=== PATIENT | male | born 1970 | race American Indian/Alaskan Native ===

== ENCOUNTER 2018-01-24 07:27 | Inpatient (IN) | payer OTHER ==
[2018-01-24 07:58] LABS: Hematocrit 40.6 % (35.5-45.6); Hemoglobin 13.5 gm/dl (11.8-15.2); Mean Corpuscular HGB Conc 33 % (32-34); Mean Corpuscular Hemoglobin 29 pg (28-32); Mean Corpuscular Volume 88 fl (84-94); Platelet Count 353 K/mm3 (140-440); Red Blood Count 4.64 M/mm3 (3.65-5.03); Red Cell Distribution Width 16.3 % (13.2-15.2)
[2018-01-24] MEDS ORDERED: NORMODYNE IV ONE (08:07)
[2018-01-24 08:13] LABS: INR 0.96 (0.87-1.13)
[2018-01-24 08:20] LABS: Alanine Aminotransferase 35 units/L (7-56); Albumin 3.4 g/dL (3.9-5); BUN/Creatinine Ratio 9; Blood Urea Nitrogen 10 mg/dL (9-20); Calcium 9.1 mg/dL (8.4-10.2); Hemolysis Index 57
[2018-01-24 08:27] LABS: Partial Thromboplastin Time 28.2 Sec. (24.2-36.6)
--- NOTE | 2018-01-24 08:39 | Emergency Department Report ---
ED General Adult HPI - General Chief complaint: Extremity Injury, Lower Stated complaint: RIGHT LEG SWOLLEN Time Seen by Provider: 01/24/18 08:03 Source: patient Mode of arrival: Ambulatory Limitations: No Limitations - History of Present Illness Initial comments: This is a 47-year-old man who admits after some questioning that he has had some chronic leg edema on the right for some time. He states it usually gets better when the elevates his leg. He has never had it checked out via Doppler testing. He states the last several days his right leg has been swollen and has not gone down. He describes some focal swelling of his thigh but mostly has swelling is below the knee. He denies chest pain. He denies any acute respiratory difficulty. He admits to noncompliance with his blood pressure medicine. 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 -: Gradual Location: right, lower extremity Severity scale (0 -10): 4 Quality: aching Consistency: intermittent, now resolved Improves with: none Worsens with: none Associated Symptoms: denies other symptoms - Related Data Previous Rx's Medication Instructions Recorded Last Taken Type Olmesartan/Hydrochlorothiazide 1 tab PO QDAY #90 tablet 08/16/15 Unknown Rx [Benicar HCT 20-12.5 mg] Allergies Allergy/AdvReac Type Severity Reaction Status Date / Time No Known Allergies Allergy Verified 01/24/18 07:35 ED Review of Systems ROS: Stated complaint: RIGHT LEG SWOLLEN Other details as noted in HPI Constitutional: denies: chills, fever Eyes: denies: eye pain, eye discharge, vision change ENT: denies: ear pain, throat pain Respiratory: denies: cough, shortness of breath, wheezing Cardiovascular: denies: chest pain, palpitations Endocrine: no symptoms reported Gastrointestinal: denies: abdominal pain, nausea, diarrhea Genitourinary: denies: urgency, dysuria Musculoskeletal: as per HPI, other. denies: back pain, joint swelling, arthralgia Skin: denies: rash, lesions Neurological: denies: headache, weakness, paresthesias Psychiatric: denies: anxiety, depression Hematological/Lymphatic: denies: easy bleeding, easy bruising ED Past Medical Hx - Past Medical History Hx Hypertension: Yes - Social History Smoking Status: Never Smoker Substance Use Type: None - Medications Home Medications: Home Medications Medication Instructions Recorded Confirmed Last Taken Type Olmesartan/Hydrochlorothiazide 1 tab PO QDAY #90 tablet 08/16/15 Unknown Rx [Benicar HCT 20-12.5 mg] ED Physical Exam - General Limitations: No Limitations General appearance: alert, in no apparent distress - Head Head exam: Present: atraumatic, normocephalic - Eye Eye exam: Present: normal appearance. Absent: scleral icterus - ENT ENT exam: Present: mucous membranes moist - Neck Neck exam: Present: normal inspection. Absent: tenderness, meningismus - Respiratory Respiratory exam: Present: normal lung sounds bilaterally. Absent: respiratory distress - Cardiovascular Cardiovascular Exam: Present: regular rate, normal rhythm. Absent: systolic murmur, diastolic murmur, rubs, gallop - GI/Abdominal GI/Abdominal exam: Present: soft, normal bowel sounds. Absent: distended, tenderness, guarding, rebound, rigid - Rectal Rectal exam: Present: deferred - Extremities Exam Extremities exam: Present: other (very swollen lymphedema and general edema below the knee. There is a patch of edema of the lateral right distal thigh. Pulses are present. There is no foot drop. Neurovascular exam is intact. The foot is warm. There is no evidence of arterial compromise. ) - Back Exam Back exam: Present: normal inspection - Neurological Exam Neurological exam: Present: alert, oriented X3, CN II-XII intact. Absent: motor sensory deficit - Psychiatric Psychiatric exam: Present: normal affect, normal mood - Skin Skin exam: Present: warm, dry, intact. Absent: normal color (postinflammatory hyperpigmentation of the cath is noted, no significant localized erythema.), rash ED Course Vital Signs 01/24/18 01/24/18 07:35 08:04 Temperature 98.8 F 100.1 F H Pulse Rate 102 H 102 H Respiratory 18 18 Rate Blood Pressure 224/138 Blood Pressure 187/135 [Right] O2 Sat by Pulse 97 Oximetry - Reevaluation(s) Reevaluation #1: Patient given additional labetalol. Discussed with hospitalist. Patient treated with vancomycin for cellulitis/lymphangitis. Patient to be admitted. 01/24/18 09:33 ED Medical Decision Making - Lab Data Result diagrams: 01/24/18 07:43 01/24/18 07:43 Laboratory Results - last 24 hr 01/24/18 01/24/18 01/24/18 07:43 07:43 07:43 WBC 9.6 RBC 4.64 Hgb 13.5 Hct 40.6 MCV 88 MCH 29 MCHC 33 RDW 16.3 H Plt Count 353 PT 13.3 INR 0.96 APTT D-Dimer Sodium 137 Potassium 3.7 Chloride 99.6 Carbon Dioxide 25 Anion Gap 16 BUN 10 Creatinine 1.1 Estimated GFR > 60 BUN/Creatinine Ratio 9 Glucose 127 H Calcium 9.1 Total Bilirubin 0.30 AST 29 ALT 35 Alkaline Phosphatase 55 Total Protein 8.7 H Albumin 3.4 L Albumin/Globulin Ratio 0.6 01/24/18 08:06 WBC RBC Hgb Hct MCV MCH MCHC RDW Plt Count PT INR APTT 28.2 D-Dimer 1140 H Sodium Potassium Chloride Carbon Dioxide Anion Gap BUN Creatinine Estimated GFR BUN/Creatinine Ratio Glucose Calcium Total Bilirubin AST ALT Alkaline Phosphatase Total Protein Albumin Albumin/Globulin Ratio - EKG Data -: EKG Interpreted by Me EKG shows normal: sinus rhythm, axis, intervals, QRS complexes, ST-T waves Rate: normal - EKG Data Interpretation: nonspecific ST-T wave rayshawn - Radiology Data interpreted by me: Doppler showed patent vessels laid down and inguinal adenopathy per the tech. Critical care attestation.: If time is entered above; I have spent that time in minutes in the direct care of this critically ill patient, excluding procedure time. ED Disposition Clinical Impression: Acute lymphangitis of right lower extremity, Accelerated hypertension Disposition: OP ADMIT IP TO THIS HOSP Is pt being admited?: Yes Does the pt Need Aspirin: Yes Condition: Stable Instructions: Hypertension (ED) Referrals: PRIMARY CAREMD [Primary Care Provider] - 3-5 Days Time of Disposition: 09:36
[2018-01-24 08:50] LABS: Band Neutrophils # (Manual) 0.3 K/mm3; Basophils % (Manual) 0 % (0.0-1.8); Eosinophils % (Manual) 0 % (0.0-4.3); RBC Morphology Normal; Total Cells Counted 100
[2018-01-24] MEDS ORDERED: ASPIRIN PO ONE (09:36)
--- NOTE | 2018-01-24 09:59 | History and Physical Report ---
History of Present Illness Date of examination: 01/24/18 Date of admission: 01/24/18 Chief complaint: RLE swelling and pain History of present illness: This is a 47-year-old man who admits after some questioning that he has had some chronic leg edema on the right for some time. He states it usually gets better when the elevates his leg. He has never had it checked out via Doppler testing. He states the last several days his right leg has been swollen and has not gone down. He describes some focal swelling of his thigh but mostly has swelling is below the knee. He denies chest pain. He denies any acute respiratory difficulty. He admits to noncompliance with his blood pressure medicine. 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 ROS: Constitutional: denies: chills, fever Eyes: denies: eye pain, eye discharge, vision change ENT: denies: ear pain, throat pain Respiratory: denies: cough, shortness of breath, wheezing Cardiovascular: denies: chest pain, palpitations Endocrine: no symptoms reported Gastrointestinal: denies: abdominal pain, nausea, diarrhea Genitourinary: denies: urgency, dysuria Musculoskeletal: as per HPI, other. denies: back pain, joint swelling, arthralgia Skin: denies: rash, lesions Neurological: denies: headache, weakness, paresthesias Psychiatric: denies: anxiety, depression Hematological/Lymphatic: denies: easy bleeding, easy bruising Past History Past Medical History: hypertension Past Surgical History: No surgical history Social history: no significant social history. denies: smoking, alcohol abuse Family history: hypertension Medications and Allergies Allergies Allergy/AdvReac Type Severity Reaction Status Date / Time No Known Allergies Allergy Verified 01/24/18 07:35 Home Medications Medication Instructions Recorded Confirmed Last Taken Type No Known Home Medications [No 01/24/18 01/24/18 Unknown History Reported Home Medications] Active Meds: Active Medications Vancomycin HCl 1,500 mg/ (Sodium Chloride) 530 mls @ 333.333 mls/hr IV Q12H [place] Exam - Constitutional Vitals: Temp Pulse Resp BP Pulse Ox 100.1 F H 74 29 H 186/128 96 01/24/18 08:04 01/24/18 09:31 01/24/18 09:31 01/24/18 09:31 01/24/18 09:31 Results - Labs CBC & Chem 7: 01/25/18 05:53 01/25/18 05:53 Labs: Abnormal lab results 01/24/18 01/24/18 01/24/18 Range/Units 07:43 07:43 08:06 RDW 16.3 H (13.2-15.2) % D-Dimer 1140 H (0-234) ng/mlDDU Glucose 127 H (75-100) mg/dL Total Protein 8.7 H (6.3-8.2) g/dL Albumin 3.4 L (3.9-5) g/dL Assessment and Plan RLE cellilitis HTN, uncontrolled Morbid obesity Noncompliance (not on meds for 3 months) - Start on iv vancomycin, obtain blood cx - Resume losartan/HCTZ, iv hydralazine as needed - Obtain 2d echo, venous doppler, obtain RLE CT - monitor BP and adjust meds as needed - cardiac diet, lovenox for DVT Px
[2018-01-24] MEDS ORDERED: VANCOMYCIN 1,500 MG in NACL 0.9% 500 ML 500 ML IV SCH (10:00)
[2018-01-24] MEDS ORDERED: VANCOMYCIN PHARMACY TO DOSE IV SCH (10:00)
--- NOTE | 2018-01-24 10:06 | XRay Report ---
AP CHEST: HISTORY: Hypertension AP view of the chest demonstrates a normal mediastinal and cardiac contour with clear lungs and normal bony and soft tissue structures. IMPRESSION: Unremarkable AP chest.
[2018-01-24] MEDS ORDERED: NON-FORMULARY (Olmesartan/Hydrochlorothiazide [Benicar Hct 20-12.5 Mg] 1 TAB) PO SCH (10:15)
[2018-01-24] MEDS: APRESOLINE IV PRN ×2 (12:51→17:52)
[2018-01-24] MEDS: VANCOMYCIN 2,000 MG in NACL 0.9% 500 ML 500 ML IV SCH (21:09)
[2018-01-25] MEDS: APRESOLINE IV PRN ×2 (05:56→08:07)
[2018-01-25 06:14] LABS: Basophils # (Auto) 0.1 K/mm3 (0.0-0.1); Basophils % (Auto) 0.8 % (0.0-1.8); Eosinophils # (Auto) 0.3 K/mm3 (0.0-0.4); Eosinophils % (Auto) 3.5 % (0.0-4.3); Hematocrit 38.1 % (35.5-45.6); Hemoglobin 12.8 gm/dl (11.8-15.2); Lymphocytes # (Auto) 1.7 K/mm3 (1.2-5.4); Lymphocytes % (Auto) 22.6 % (13.4-35.0); Mean Corpuscular HGB Conc 34 % (32-34); Mean Corpuscular Hemoglobin 29 pg (28-32); Mean Corpuscular Volume 87 fl (84-94); Monocytes # (Auto) 0.5 K/mm3 (0.0-0.8); Monocytes % (Auto) 6.8 % (0.0-7.3); Platelet Count 357 K/mm3 (140-440); Red Blood Count 4.39 M/mm3 (3.65-5.03); Red Cell Distribution Width 16.2 % (13.2-15.2)
[2018-01-25 06:30] LABS: BUN/Creatinine Ratio 8; Blood Urea Nitrogen 8 mg/dL (9-20); Calcium 8.7 mg/dL (8.4-10.2); Hemolysis Index 78
[2018-01-25] MEDS: VANCOMYCIN 2,000 MG in NACL 0.9% 500 ML 500 ML IV SCH ×2 (09:47→21:55)
[2018-01-25] MEDS ORDERED: TYLENOL PO PRN (09:51)
[2018-01-25] MEDS ORDERED: HCTZ PO SCH (10:00)
[2018-01-25] MEDS ORDERED: COZAAR PO SCH (10:00)
[2018-01-25] MEDS: MUCINEX ER PO SCH ×2 (10:58→21:55)
--- NOTE | 2018-01-25 13:24 | Cat Scan Report ---
CT LOWER EXTREMITY RIGHT WITHOUT CONTRAST History: Right lower extremity swelling. Technique: Helical CT with sagittal and coronal reformatted images. Findings: There is diffuse nonspecific subcutaneous swelling throughout the right lower extremity. No evidence for soft tissue gas or mature abscess. There are 2 tiny hyperdense structures in the anterior soft tissues on images 66 and 71, series 2. These appear to represent small nonspecific soft tissue calcifications. Foreign body is thought less likely. The bony structures are intact. No evidence for fracture, periostitis or bony destruction. Impression: Nonspecific subcutaneous edema. This may represent a cellulitis. No bony abnormality is detected.
[2018-01-25] MEDS: NORVASC PO SCH (13:37)
--- NOTE | 2018-01-25 16:05 | Progress Note ---
Assessment and Plan RLE cellilitis HTN, uncontrolled Morbid obesity Noncompliance (not on meds for 3 months) - Start on iv vancomycin, obtain blood cx - Resume losartan/HCTZ, iv hydralazine as needed - Obtain 2d echo, venous doppler, obtain RLE CT - monitor BP and adjust meds as needed - cardiac diet, lovenox for DVT Px Subjective Date of service: 01/25/18 Objective - Constitutional Vitals: Vital Signs - 12hr 01/25/18 01/25/18 01/25/18 05:45 05:56 08:07 Temperature 99.6 F Pulse Rate 87 86 82 Respiratory 20 Rate Blood Pressure 188/122 188/122 186/116 O2 Sat by Pulse 94 Oximetry 01/25/18 01/25/18 09:47 13:37 Temperature Pulse Rate 95 H 90 Respiratory Rate Blood Pressure 168/108 178/110 O2 Sat by Pulse Oximetry - Labs CBC & Chem 7: 01/25/18 05:53 01/25/18 05:53 Labs: Abnormal lab results 01/25/18 01/25/18 Range/Units 05:53 05:53 RDW 16.2 H (13.2-15.2) % BUN 8 L (9-20) mg/dL Glucose 106 H (75-100) mg/dL
[2018-01-26] MEDS: MUCINEX ER PO SCH (09:14)
[2018-01-26] MEDS: NORVASC PO SCH (09:18)
[2018-01-26] MEDS: VANCOMYCIN 2,000 MG in NACL 0.9% 500 ML 500 ML IV SCH (09:23)
[2018-01-26] MEDS ORDERED: COZAAR PO SCH (10:00)
[2018-01-26] MEDS ORDERED: HCTZ PO SCH (10:00)
--- NOTE | 2018-01-26 12:39 | Discharge Summary ---
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 Hospitalization Condition: Stable Hospital course: Discharge diagnosis: RLE cellilitis HTN, uncontrolled Morbid obesity Noncompliance (not on meds for 3 months) - Start on iv vancomycin, obtain blood cx - Resume losartan/HCTZ, iv hydralazine as needed - Obtain 2d echo, venous doppler, obtain RLE CT - monitor BP and adjust meds as needed - cardiac diet, lovenox for DVT Px Disposition: DC-01 TO HOME OR SELFCARE Time spent for discharge: 32 minutes Core Measure Documentation - Palliative Care Palliative Care/ Comfort Measures: Not Applicable - Core Measures Any of the following diagnoses?: none Exam - Constitutional Vitals: Temp Pulse Resp BP Pulse Ox 98.7 F 85 16 159/99 96 01/26/18 05:57 01/26/18 09:18 01/26/18 08:00 01/26/18 09:18 01/26/18 05:57 Plan Activity: advance as tolerated Weight Bearing Status: Weight Bear as Tolerated Diet: low fat, low salt Follow up with: PRIMARY CARE, [Primary Care Provider] - 3-5 Days Prescriptions: amLODIPine [Norvasc] 10 mg PO QDAY #30 tablet Aspirin [Aspirin BABY CHEW TAB] 81 mg PO QDAY #30 tab.chew hydroCHLOROthiazide [HCTZ] 25 mg PO QDAY #30 capsule Losartan [Cozaar] 100 mg PO QDAY #30 tablet Sulfamethoxazole/Trimethoprim [Bactrim DS TAB] 1 each PO BID #10 tablet
[2018-01-26] MEDS: APRESOLINE IV PRN ×2 (13:26→15:13)
[2018-01-26] MEDS ORDERED: CATAPRES PO ONE (16:50)
[2018-01-26 18:34] VITALS: BP 157/99
== END 2018-01-26 18:45 | disposition home or self-care (01) | DRG 603 ==
LOC: ED 07:27 → 3A 09:37
PROVIDERS: ADMIT Internal Medicine; ATTEND Internal Medicine
DX: L03.115 Cellulitis of right lower limb (principal); Z68.41 Body mass index [BMI] 40.0-44.9, adult; L03.125 Acute lymphangitis of right lower limb; I10 Essential (primary) hypertension; Z91.14 Patient's other noncompliance with medication regimen; Z82.49 Family history of ischemic heart disease and other diseases of the circulatory system; E66.01 Morbid (severe) obesity due to excess calories; Z71.3 Dietary counseling and surveillance
CPT/HCPCS: 36415; 71045; 80048; 80053; 80202; 82140; 85007; 85025; 85379; 85610; 85730; 87040; 93005; 93010; 93306; J0360; J3370; J7040